=== PATIENT | male | born 1945 | race Caucasian/White ===

== ENCOUNTER 2022-10-27 00:23 | Emergency (ER) | payer MEDICARE, OTHER, SELFPAY ==
[2022-10-27 00:25] VITALS: BP 134/83; PULSE 77; RESP 18; TEMP 36.8; O2SAT 95; BMI 32.5
--- NOTE | 2022-10-27 00:51 | XRR_ITS ---
PROCEDURE INFORMATION: Exam: XR Chest Exam date and time: 10/27/2022 12:54 AM Age: 77 years old Clinical indication: Pain; Patient HX: RT sided cp radiating to RT scapula; Additional info: Right sided cp TECHNIQUE: Imaging protocol: Radiologic exam of the chest. Views: 1 view. COMPARISON: No relevant prior studies available. FINDINGS: Lungs: Unremarkable. No consolidation. Pleural spaces: Blunted left costophrenic angle; small pleural effusion not excluded. No pneumothorax. Heart/Mediastinum: Unremarkable. No cardiomegaly. Bones/joints: Unremarkable. XR/XR chest 1V portable [id number] IMPRESSION: 1. No acute pulmonary disease. 2. Query small left pleural effusion.
--- NOTE | 2022-10-27 01:09 | W.ED.BACK ---
HPI - Back Pain/Injury General: Chief Complaint: Back Pain/Injury Stated Complaint: R SHOULDER BLADE PAIN Time Seen by Provider: 10/27/22 00:37 Source: patient History of Present Illness: 77-year-old male presenting with right posterior chest wall pain at the mid chest around the rib angles. There is pain with movement. There is random catching type pain. Sometimes worse with deep breathing, sometimes not. No history of cough. No diaphoresis, no nausea, no other symptoms. 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 Onset (ago): hour(s) Timing: intermittent Severity: moderate Similar Symptoms Previously: No Quality: sharp Location: right upper back Radiation: none Exacerbating factors: movement Relieving factors: none Context: turning/twisting Associated symptoms: Deny abdominal pain, chills, difficulty walking, fatigue, fever(s), nausea or tingling/numbness/burning Review of Systems Const: Denies: fever(s), chills or fatigue ENMT: Denies: throat pain Card: Denies: edema, swelling of feet/ankles or dyspnea on exertion Resp: Denies: dyspnea, productive cough or non-productive cough GI: Denies: abdominal pain or nausea Neuro: Denies: difficulty walking Physical Exam Const: COMMON NORMALS: no acute distress GENERAL APPEARANCE: cooperative; not ill appearing and not frail appearing HENMT: COMMON NORMALS: normocephalic, atraumatic and Normal external nose present HEAD & SCALP: normocephalic and atraumatic FACE & SINUS: normal facial exam and face symmetric NOSE: Normal external nose present Eye: COMMON NORMALS: Equal, round and reactive pupils present and EOMs intact bilaterally PUPIL: Yes Equal, round and reactive pupils present Neck/C-Spine: GENERAL: Yes trachea midline Chest: CHEST: Yes Symmetrical chest wall rise and Yes tenderness rib (Right mid rib angles) Resp: COMMON NORMALS: normal respiratory effort, No retractions, No use of accessory muscles and clear to auscultation bilaterally AUSCULTATION: clear to auscultation bilaterally Cardio: COMMON NORMALS: regular rate and regular rhythm RATE: regular rate RHYTHM: regular rhythm GI: COMMON NORMALS: Normal to inspection, nondistended, normoactive bowel sounds present Extremity: COMMON NORMALS: no pedal edema Neuro: JONATHAN COMA SCALE: document GCS findings [place] coma scale eye opening: Spontaneous Jonathan coma scale verbal response: Orientated [place] coma scale motor response: Obey commands Jonathan coma scale total score: 15 SENSORY EXAM: Yes extremities (intact) Psych: COMMON NORMALS: speech normal SPEECH: Yes normal speech Skin: COMMON NORMALS: no rashes or lesions noted GENERAL SKIN EXAM: no rashes or lesions noted Course Vital Signs: Vital signs: Vital Signs Temperature 98.3 F 10/27/22 00:25 Pulse Rate 18 L 10/27/22 02:56 Respiratory Rate 18 10/27/22 00:25 Blood Pressure 116/68 10/27/22 02:56 Pulse Oximetry 98 10/27/22 02:56 Oxygen Delivery Me thod Room Air 10/27/22 00:25 MDM - Back Pain/Injury Medical Decision Making There is no hypoxia or tachycardia. The patient winces in pain every few seconds evidently due to a muscle spasm. Pain is somewhat reproducible on palpation. It is also reproducible with movement. Chest x-ray does not reveal an infiltrate, pneumothorax, effusion, or rib fracture on that side. Twelve-lead EKG performed and that ambulance was not significant for any abnormalities. Patient is given morphine and Ativan here. This essentially resolved his pain. EKG here shows a sinus rhythm with normal axis and intervals. Rate is 75. There is no ST change. With improvement/resolution in his symptoms, reproducible pain by movement, negative chest x-ray, and other findings above, he will be allowed discharged to return for any worsening symptoms whatsoever. Labs Radiology Impressions Chest X-Ray 10/27/22 00:51 IMPRESSION: 1. No acute pulmonary disease. 2. Query small left pleural effusion. Discharge Plan Discharge Patient Disposition: Home Clinical Impression: Thoracic back pain, Strain of chest wall Condition: Stable Prescriptions: New lorazepam 0.5 mg tablet 0.5 mg PO Q8H PRN (Reason: muscle spasm) Qty: 10 0RF Discharge Orders: Discharge ED (Routine); Ordered 10/27/22 Ordered By: Suhail Cummings Referrals: Aren Desir [Primary Care Provider] - 1-3 days Patient Instructions: Muscle Strain (ED), Thoracic Back Strain (ED), Pain Management Activity Restrictions/Additional Instructions: Take medication 3 times daily scheduled for 24 to 36 hours, then as needed following. Return immediately to the emergency room for worsening pain despite treatment, fever, nausea, shortness of breath, any other concerning symptoms. Call your doctor later today. See them later this week. Coding Level of Care Code ED [employer] for [employer]
[2022-10-27] MEDS: LORazepam 2 mg/mL INJ 1 mL 0.5 MG IVP (01:15)
[2022-10-27] MEDS: morphine 4 mg/mL SDV 1 mL IVP (01:16)
--- NOTE | 2022-10-27 02:03 | ECG_ITS ---
[facility] Test Date: 2022-10-27 Pat Name: Jay Black Department: Room: Gender: Male Wash Worker: : 1945 Requested By: Suhail Hernandez Order Number: [id number] Juan Francisco MD: Sam Bassett M.D. Measurements Intervals Senath Rate: 75 P: 48 KS: 189 QRS: 20 QRSD: 93 T: 40 QT: 368 QTc: 411 Interpretive Statements SINUS RHYTHM MINIMAL ST DEPRESSION [0.025+ mV ST DEPRESSION] No previous ECG available for comparison Electronically Signed On 10-27-2022 16:44:18 CDT by Sam Bassett M.D. [id number]
[2022-10-27 02:56] VITALS: BP 116/68; PULSE 18; O2SAT 98
== END 2022-10-27 03:00 | disposition home or self-care (01) ==
PROVIDERS: Emergency Provider Emergency Medicine; PCP Family Medicine
DX: S29.011A Strain of muscle and tendon of front wall of thorax, initial encounter (principal); X58.XXXA Exposure to other specified factors, initial encounter; M54.6 Pain in thoracic spine
CPT/HCPCS: 71045; 93005; 96374; 96375; 99284; J2060; J2270